=== PATIENT | male | born 1960 | race Caucasian/White ===

== ENCOUNTER 2016-10-23 21:54 | Emergency (ER) | payer SELFPAY ==
[2016-10-23] MEDS ORDERED: ASPIRIN 81 MG TABLET, CHEWABLE PO ONE (21:59)
[2016-10-23 22:15] VITALS: BP 118/73
--- NOTE | 2016-10-23 22:55 | RADIOLOGY REPORT (SQ) ---
EXAM DESCRIPTION: CHEST SINGLE VIEW COMPLETED DATE/TIME: 10/23/2016 10:28 pm REASON FOR STUDY: cp COMPARISON: 11/15/2015 EXAM PARAMETERS: NUMBER OF VIEWS: One view. TECHNIQUE: Single frontal radiographic view of the chest acquired. RADIATION DOSE: NA LIMITATIONS: None. FINDINGS: LUNGS AND PLEURA: Mild bibasilar confluent linear opacities, likely subsegmental atelectas is. No dense consolidation. No pneumothorax. No pleural effusion. MEDIASTINUM AND HILAR STRUCTURES: Stable. HEART AND VASCULAR STRUCTURES: Heart normal in size. Normal vasculature. BONES: No acute findings. HARDWARE: None in the chest. OTHER: No other significant finding. IMPRESSION: Mild bibasilar confluent linear opacities, likely subsegmental atelectasis. No dense co nsolidation or pleural effusion. TECHNICAL DOCUMENTATION: JOB ID: [id number]
[2016-10-23 23:10] LABS: ABSOLUTE EOSINOPHILS # (AUTO) 0.2 10^3/uL (0.0-0.6); ABSOLUTE LYMPHOCYTES (AUTO) 1.5 10^3/uL (0.5-4.7); ABSOLUTE MONOCYTES (AUTO) 0.6 10^3/uL (0.1-1.4); ABSOLUTE NEUT (AUTO) 3.2 10^3/uL (1.7-8.2); BASOPHILS % (AUTO) 0.4 % (0-2); EOSINOPHILS % (AUTO) 2.8 % (0-6); HEMATOCRIT 38.2 % (37.9-51.0); HGB HCT DIFFERENCE 0.8; LYMPHOCYTES % (AUTO) 28.3 % (13-45); MEAN CORPUSCULAR HEMOGLOBIN 31.1 pg (27.0-33.4); MEAN CORPUSCULAR HGB CONC 34.1 g/dL (32.0-36.0); MEAN CORPUSCULAR VOLUME 91 fl (80-97); MONOCYTES % (AUTO) 10.7 % (3-13); RED BLOOD COUNT 4.19 10^6/uL (4.35-5.55); SEGMENTED NEUTROPHILS % (AUTO) 57.8 % (42-78); WHITE BLOOD COUNT 5.5 10^3/uL (4.0-10.5)
[2016-10-23 23:20] LABS: ALANINE AMINOTRANSFERASE 27 U/L (21-72); ALBUMIN 4.1 g/dL (3.5-5.0); ALKALINE PHOSPHATASE 143 U/L (38-126); ANION GAP 10 (5-19); ASPARTATE AMINO TRANSFERASE 26 U/L (17-59); BILIRUBIN,DIRECT 0.3 mg/dL (0.0-0.4); BILIRUBIN,TOTAL 0.3 mg/dL (0.2-1.3); BLOOD UREA NITROGEN 6 mg/dL (7-20); CALCIUM 9.2 mg/dL (8.4-10.2); CARBON DIOXIDE 29 mmol/L (22-30); CHLORIDE 102 mmol/L (98-107); CREATINE KINASE 48 U/L (55-170); CREATININE RESULT 0.91 mg/dL (0.52-1.25); GLUCOSE 94 mg/dL (75-110); POTASSIUM 3.9 mmol/L (3.6-5.0); SODIUM 140.5 mmol/L (137-145); TOTAL PROTEIN 6.4 g/dL (6.3-8.2)
[2016-10-23 23:34] LABS: CREATINE KINASE MB 1.98 ng/mL (<4.55); TROPONIN I < 0.012 ng/mL
--- NOTE | 2016-10-24 08:08 | EKG REPORT ---
SEVERITY:- NORMAL ECG - SINUS RHYTHM : Confirmed on behalf of: Miguel Little 24-Oct-2016 08:06:38
== END 2016-10-23 23:15 | disposition left against medical advice (07) ==
LOC: ER 21:54
DX: Z53.9 Procedure and treatment not carried out, unspecified reason (principal); R07.9 Chest pain, unspecified
CPT/HCPCS: 36415; 71010; 80053; 82550; 82553; 84484; 85025; 93005; 93010

== ENCOUNTER 2017-01-08 10:46 | Observation (INO) | payer MEDICARE ==
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
[2017-01-08 11:39] LABS: ABSOLUTE EOSINOPHILS # (AUTO) 0.1 10^3/uL (0.0-0.6); ABSOLUTE LYMPHOCYTES (AUTO) 1.6 10^3/uL (0.5-4.7); ABSOLUTE MONOCYTES (AUTO) 0.8 10^3/uL (0.1-1.4); ABSOLUTE NEUT (AUTO) 4.4 10^3/uL (1.7-8.2); BASOPHILS % (AUTO) 0.6 % (0-2); EOSINOPHILS % (AUTO) 1.8 % (0-6); HEMATOCRIT 41.7 % (37.9-51.0); HEMOGLOBIN 13.9 g/dL (13.5-17.0); LYMPHOCYTES % (AUTO) 22.7 % (13-45); MEAN CORPUSCULAR HEMOGLOBIN 29.4 pg (27.0-33.4); MEAN CORPUSCULAR HGB CONC 33.5 g/dL (32.0-36.0); MEAN CORPUSCULAR VOLUME 88 fl (80-97); MONOCYTES % (AUTO) 11.2 % (3-13); RED BLOOD COUNT 4.75 10^6/uL (4.35-5.55); RED CELL DISTRIBUTION WIDTH 13.7 % (11.5-14.0); SEGMENTED NEUTROPHILS % (AUTO) 63.7 % (42-78); WHITE BLOOD COUNT 6.9 10^3/uL (4.0-10.5)
[2017-01-08 12:03] LABS: ALANINE AMINOTRANSFERASE 34 U/L (21-72); ALBUMIN 4.2 g/dL (3.5-5.0); ALKALINE PHOSPHATASE 132 U/L (38-126); ANION GAP 11 (5-19); ASPARTATE AMINO TRANSFERASE 24 U/L (17-59); BILIRUBIN,DIRECT 0.3 mg/dL (0.0-0.4); BILIRUBIN,TOTAL 0.3 mg/dL (0.2-1.3); BLOOD UREA NITROGEN 7 mg/dL (7-20); CALCIUM 9.5 mg/dL (8.4-10.2); CARBON DIOXIDE 31 mmol/L (22-30); CHLORIDE 103 mmol/L (98-107); CREATININE RESULT 0.99 mg/dL (0.52-1.25); GLUCOSE 95 mg/dL (75-110); POTASSIUM 3.7 mmol/L (3.6-5.0); SODIUM 145.1 mmol/L (137-145); TOTAL PROTEIN 6.7 g/dL (6.3-8.2)
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
[2017-01-08] MEDS ORDERED: NITROGLYCERIN 2% OINTMENT 1 GM PACKET TP ONE (13:08)
[2017-01-08] MEDS ORDERED: METOPROLOL TARTRATE 25 MG TABLET PO ONE (13:13)
--- NOTE | 2017-01-08 13:22 | EKG REPORT ---
SEVERITY:- BORDERLINE ECG - SINUS RHYTHM BORDERLINE R WAVE PROGRESSION, ANTERIOR LEADS TALL R WAVE IN V2, CONSIDER RVH OR PMI : Confirmed by: Duane Clarke MD 08-Jan-2017 13:21:23
[2017-01-08] MEDS ORDERED: MORPHINE SULFATE 10 MG/ML INJ IV PRN (13:59)
[2017-01-08] MEDS ORDERED: ONDANSETRON HCL INJ/PF 4 MG/2 ML SDV IV PRN (13:59)
[2017-01-08] MEDS ORDERED: DIAZEPAM 5 MG TABLET PO PRN (13:59)
[2017-01-08] MEDS ORDERED: NITROGLYCERIN 0.4 MG/TAB 25 TAB/BOTTLE SL PRN (13:59)
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
--- NOTE | 2017-01-08 15:18 | EKG REPORT ---
SEVERITY:- BORDERLINE ECG - SINUS RHYTHM NO EVIDENCE OF RV [place]. = r PRECORDIAL LEAD EKG. : Confirmed by: Duane Clarke MD 08-Jan-2017 15:18:01
[2017-01-08] MEDS: HYDROCODONE/ACETAMINOPHEN 10-325 MG TABLET PO PRN ×2 (15:52→21:08)
[2017-01-08] MEDS ORDERED: (PENDING PHARMACY ID) (Doxepin Hcl [Silenor] 3 MG) PO SCH (18:00)
[2017-01-08] MEDS: ALPRAZOLAM 0.5 MG TABLET PO SCH (21:07)
[2017-01-08] MEDS ORDERED: LANSOPRAZOLE 30 MG TAB.RAP.DR PO SCH (22:00)
[2017-01-08] MEDS ORDERED: TRAZODONE HCL 50 MG TABLET PO SCH (22:00)
[2017-01-08] MEDS ORDERED: ATORVASTATIN CALCIUM 80 MG TABLET PO SCH (22:00)
[2017-01-09] MEDS: ALPRAZOLAM 0.5 MG TABLET PO SCH ×2 (05:51→14:25)
[2017-01-09] MEDS: HYDROCODONE/ACETAMINOPHEN 10-325 MG TABLET PO PRN ×2 (05:51→12:02)
[2017-01-09] MEDS ORDERED: LANSOPRAZOLE 30 MG TAB.RAP.DR PO SCH (06:00)
[2017-01-09 07:07] LABS: CHOLESTEROL 188.39 mg/dL (0-200); Direct HDL 46 mg/dL (>40); TRIGLYCERIDES 126 mg/dL (<150)
[2017-01-09 07:17] LABS: DIRECT LDL 112 mg/dL (<100)
[2017-01-09] MEDS ORDERED: CLOPIDOGREL BISULFATE 75 MG TABLET PO SCH (10:00)
[2017-01-09] MEDS ORDERED: METOPROLOL SUCCINATE 25 MG TAB.SR.24H PO SCH (10:00)
[2017-01-09] MEDS ORDERED: PHENYTOIN SODIUM EXTENDED 100 MG CAPSULE PO SCH (10:00)
[2017-01-09] MEDS ORDERED: ASPIRIN 81 MG TABLET, ENT COATED PO SCH (10:00)
[2017-01-09] MEDS ORDERED: REGADENOSON INJ 0.4 MG/5 ML DISP.SYRIN IV ONE (13:26)
--- NOTE | 2017-01-09 16:21 | PDOC DISCHARGE SUMMARY ---
General - Admit/Disc Date/PCP Admission Date/Primary Care Provider: 01/08/17 14:02 QUOC HELM NP Discharge Date: 01/09/17 - Discharge Diagnosis (1) Accelerated hypertension Is this a current diagnosis for this admission?: Yes Summary: This patient has known coronary disease and hypertension. On admission during his acute chest pain episode he had elevated blood pressure. On his regular blood pressure medications his hypertension has resolved to normal. There are no medication changes made for discharge. (2) Chest pain Is this a current diagnosis for this admission?: Yes Summary: Patient has known coronary disease. Secondary to this and his chest pain syndrome along with elevated blood pressure he was admitted for ischemic evaluation. Patient underwent Cardiolite stress testing. Per report given to me by our cyber security the study was normal without evidence of fixed or reversible disease. Troponins were not consistent with an acute coronary syndrome pattern. Now with resolution of hypertension, and post stress test, patient's symptoms are completely resolved. He and I discussed the results of the Cardiolite stress test. I told him that despite normal results if he has recurrent chest pain he should be seen by medical provider given his history of NE and known coronary disease. (3) Myocardial infarction greater than 8 weeks ago Is this a current diagnosis for this admission?: Yes (4) Peripheral vascular disease Is this a current diagnosis for this admission?: Yes Summary: Stable during this hospitalization (5) Seizure disorder Is this a current diagnosis for this admission?: Yes Summary: Stable during this hospitalization - Additional Information Resuscitation Status: Full Code Discharge Diet: Cardiac Discharge Activity: Other - would recommend rest for a few days, then slowly resume normal activity. Return to medical care with any concering symptoms. Home Medications: Alprazolam [Xanax] 1 mg PO Q8 01/08/17 Clopidogrel Bisulfate [Plavix 75 mg Tablet] 75 mg PO DAILY 01/08/17 Doxepin HCl [Silenor] 3 mg PO BID 01/08/17 Esomeprazole Magnesium [Nexium] 40 mg PO DAILY 01/08/17 Ezetimibe [Zetia 10 mg Tablet] 10 mg PO DAILY 01/08/17 Hydrocodone Bit/Acetaminophen [Hydrocodon-Acetaminophn 10-325] 1 tab PO Q6HP PRN 01/08/17 Metoprolol Succinate [Toprol Xl 25 mg Tab.sr] 25 mg PO DAILY 01/08/17 Nortriptyline HCl [Pamelor] 75 mg PO QHS 01/08/17 Phenytoin Sodium Extended [Dilantin 100 mg Capsule.er] 200 mg PO DAILY 01/08/17 Rosuvastatin Calcium [Crestor] 40 mg PO QPM 01/08/17 Sildenafil Citrate [Viagra] 100 mg PO PRN PRN 01/08/17 Trazodone HCl [Desyrel 50 mg Tablet] 100 mg PO QHS 01/08/17 History of Present Illness History of Present Illness: NIKKY MCCULLOUGH is a 56 year old male Who was admitted to the hospitalist service with chest pain in the setting of acute coronary syndrome several years ago. His chest pain prior to admission with similar to the chest pain he had when he did have his NE. Due to chest pain syndrome and elevated blood pressure in the setting of known coronary disease he was admitted. Troponins were not consistent with acute coronary syndrome. He had negative Cardiolite. He is being discharged to home with no medication changes and with normal blood pressure. Chest pain-free. Physical Exam Vital Signs: Temp Pulse Resp BP Pulse Ox 97.8 F 76 18 127/68 H 96 01/09/17 11:09 01/09/17 14:00 01/09/17 11:09 01/09/17 11:09 01/09/17 11:09 Intake & Output 01/08/17 01/09/17 01/10/17 06:59 06:59 06:59 Intake Total 2070 Output Total 222 Balance 1848 Weight 79.5 kg General appearance: PRESENT: no acute distress, well-developed, well-nourished Head exam: PRESENT: atraumatic, normocephalic Ear exam: PRESENT: normal external ear exam Respiratory exam: PRESENT: clear to auscultation [place]. ABSENT: rales, rhonchi, wheezes Cardiovascular exam: PRESENT: RRR. ABSENT: diastolic murmur, rubs, systolic murmur GI/Abdominal exam: PRESENT: normal bowel sounds, soft. ABSENT: distended, guarding, mass, organolmegaly, rebound, tenderness Extremities exam: ABSENT: calf tenderness, clubbing, pedal edema Musculoskeletal exam: PRESENT: ambulatory Neurological exam: PRESENT: alert, awake, oriented to person, oriented to place , oriented to time, oriented to situation Psychiatric exam: PRESENT: appropriate affect Results Laboratory Results: 01/09/17 05:34 Triglycerides 126 Cholesterol 188.39 LDL Cholesterol Direct 112 H VLDL Cholesterol 25.0 HDL Cholesterol 46 01/08/17 01/08/17 01/09/17 14:18 20:00 02:24 Troponin I < 0.012 < 0.012 < 0.012 Qualifiers PATEINT BEING DISCHARGED WITH ANY OF THE FOLLOWING DIAGNOSIS?: No
[2017-01-09 16:26] VITALS: BP 139/85
--- NOTE | 2017-01-09 18:18 | DRAGON STRESS TEST REPORT ---
Intravenous Lexiscan Cardiolite stress test using single photon emmision computerized tomography. Date of procedure: 01/09/2017. Ordering Provider: Dr. Joey Rivers. Patient' s status: In Patient. Indication: Chest pain in a patient with coronary artery disease and stent placement.. Coronary risk factors: Age, hypertension, dyslipidemia, and family history of coronary artery disease Resting EKG: Sinus Rhythm. Within Normal Limits. Stress EKG: No changes of ischemia. Reason for termination: Protocol. Conclusions: Normal EKG and hemodynamic response to IV Lexiscan. Nuclear data: At rest the patient was given 12.94 millicuries of technetium 99m sestamibi injected intravenously. As per protocol rest non gated SPECT images were obtained. Subsequently the patient was given intravenous Lexiscan at a dose of 0.4 mg in 5 mL intravenously, followed by flush with normal saline. Subsequently the stress dose of 36.9 millicuries of technetium 99m sestamibi was injected intravenously. As per protocol stress gated images were obtained. Nuclear interpretation: Review of images showed that all segments of the myocardium had normal perfusion at rest, and normal perfusion post stress with IV Lexiscan. All segments of the myocardium had normal motion, contraction, and thickening by gated study. T. I D. ratio was read as abnormal at 1.28. But visually TID ratio was normal.. Computer read rest, and stress left ventricular ejection fraction were 63 %, and 65 %, respectively. Conclusion: 1. There is no scintigraphic evidence of Lexiscan induced myocardial ischemia. 2. There is no scintigraphic evidence of myocardial infarction/scar. Recommendations: Aggressive risk factor modification, and treating the underlying co- morbidities. MTDD
== END 2017-01-09 16:44 | disposition home or self-care (01) ==
LOC: ER 10:46 → EH 14:02 → 4W 15:33
PROVIDERS: ADMIT Internal Medicine; ATTEND Internal Medicine
DX: I10 Essential (primary) hypertension (principal); R07.9 Chest pain, unspecified; I25.10 Atherosclerotic heart disease of native coronary artery without angina pectoris; I25.2 Old myocardial infarction; I73.9 Peripheral vascular disease, unspecified; G40.909 Epilepsy, unspecified, not intractable, without status epilepticus; M79.622 Pain in left upper arm; I69.320 Aphasia following cerebral infarction; I69.323 Fluency disorder following cerebral infarction; I69.311 Memory deficit following cerebral infarction; Z79.899 Other long term (current) drug therapy; Z79.02 Long term (current) use of antithrombotics/antiplatelets; Z95.5 Presence of coronary angioplasty implant and graft; Z87.891 Personal history of nicotine dependence; Z82.49 Family history of ischemic heart disease and other diseases of the circulatory system; Z98.890 Other specified postprocedural states
CPT/HCPCS: 93005 ×2; 99284; 36415 ×2; 85025; 80053; 84484 ×2; 80061; 93017; 78452; 93010; G0378 ×3; A9500; A9270 ×14; J2785; J3490 ×2; Q9969

== ENCOUNTER 2017-09-25 05:21 | Day surgery (SDC) | payer MEDICARE ==
[2017-09-14 09:26] LABS: HEMATOCRIT 42.3 % (37.9-51.0); HEMOGLOBIN 14.2 g/dL (13.5-17.0); MEAN CORPUSCULAR HEMOGLOBIN 30.1 pg (27.0-33.4); MEAN CORPUSCULAR HGB CONC 33.5 g/dL (32.0-36.0); MEAN CORPUSCULAR VOLUME 90 fl (80-97); PLATELET COUNT 285 10^3/uL (150-450); RED BLOOD COUNT 4.72 10^6/uL (4.35-5.55); WHITE BLOOD COUNT 5.7 10^3/uL (4.0-10.5)
[2017-09-14 09:39] LABS: INTERNATIONAL RATION (INR) 0.91; PROTHROMBIN TIME 12.7 SEC (11.4-15.4)
[2017-09-14 09:40] LABS: PARTIAL THROMBOPLASTIN TIME 25.5 SEC (23.5-35.8)
[2017-09-14 09:50] LABS: ANION GAP 11 (5-19); BLOOD UREA NITROGEN 8 mg/dL (7-20); CALCIUM 9.3 mg/dL (8.4-10.2); CARBON DIOXIDE 28 mmol/L (22-30); CHLORIDE 105 mmol/L (98-107); GLUCOSE 87 mg/dL (75-110); POTASSIUM 4.4 mmol/L (3.6-5.0); SODIUM 143.5 mmol/L (137-145)
--- NOTE | 2017-09-14 18:22 | EKG REPORT ---
SEVERITY:- OTHERWISE NORMAL ECG - SINUS BRADYCARDIA : Confirmed by: Miguel Little 14-Sep-2017 18:21:43
[~2017-09-25 05:21] MED LIST: CEFAZOLIN 1 GM/D5W RTU 1 GM/50 ML RTUPB IV PRN; LACTATED RINGERS 1000 ML IV PRN; LIDOCAINE 0.5% INJ-PF (5 MG/ML) 50 ML SDV SUBCUT PRN
[2017-09-25] MEDS ORDERED: SODIUM BICARBONATE 8.4% INJ 50 MEQ/50 ML DISP.SYRIN ONE (05:43)
[2017-09-25] MEDS ORDERED: POVIDONE-IODINE 5% OPH PREP SOLN 30 ML ONE (05:43)
[2017-09-25] MEDS ORDERED: LIDOCAINE 1%/EPINEPHRINE INJ 20 ML VIAL ONE (05:43)
[2017-09-25] MEDS ORDERED: MIDAZOLAM 2 MG/2 ML INJ ONE (07:10)
[2017-09-25] MEDS ORDERED: ONDANSETRON HCL INJ/PF 4 MG/2 ML SDV ONE (07:10)
[2017-09-25] MEDS ORDERED: FENTANYL CITRATE INJ/PF 100 MCG/2 ML AMPUL ONE (07:10)
[2017-09-25] MEDS ORDERED: PROPOFOL INJ 200 MG/20 ML VIAL IV ONE (07:10)
[2017-09-25] MEDS ORDERED: MEPERIDINE HCL/PF INJ 25 MG/1 ML DISP.SYRIN IV PRN (08:01)
[2017-09-25] MEDS ORDERED: DIPHENHYDRAMINE HCL 50 MG/ML VIAL IV PRN (08:01)
[2017-09-25] MEDS ORDERED: PROMETHAZINE HCL INJ 25 MG/1 ML VIAL IV PRN (08:01)
[2017-09-25] MEDS ORDERED: FENTANYL CITRATE INJ/PF 100 MCG/2 ML AMPUL IV PRN ×3 (08:01)
--- NOTE | 2017-09-25 08:50 | Operative Report ---
Operative Report DATE OF SURGERY: 09/25/17 PREOPERATIVE DIAGNOSIS: Lesion of uncertain behavior of the left deltoid POSTOPERATIVE DIAGNOSIS: Lesion of uncertain behavior of the left deltoid possible squamous cell carcinoma OPERATION: Excision of lesion of left deltoid with frozen section margin control and reconstruction with a rotation flap SURGEON: ALEKSANDER GILES ANESTHESIA: LMAC TISSUE REMOVED OR ALTERED: Lesion of uncertain behavior removed COMPLICATIONS: None ESTIMATED BLOOD LOSS: Minimal PROCEDURE: Patient seen and was marked prior to being brought into the operating room. Patient was brought into the operating room and placed on the operating room table in a [supine] position. Patient was then prepped with a Betadine scrub and Betadine solution and draped in a sterile and aseptic manner. The area was then marked. 12 O'clock was marked towards the apex of the deltoid 3 O'clock was marked towards the lateral deltoid 6:00 was marked towards the elbow 9:00 was marked towards the inner arm The area was then anesthetized with 1% lidocaine with epinephrine and bicarbonate for its anesthetic and hemostatic effects. The area was then excised and marked at 12:00. The specimen was sent for frozen section. The results came back that the deep and lateral margins were free. We had considered a primary closure but this would go against the natural relaxed skin tension lines. A primary closure would be too tight and would have increased chance of dehiscence. This will leave more of a scar so we decided to use a rotation flap reconstruction which would camouflage the scar better and take tension off of the closure so that would be less chances of complications. Using a rotation flap this would allow us to put the reconstructive scar closer to the relaxed tension lines. The reconstruction will also camouflage better. The reconstruction would also minimize jeopardy from early range of motion of the shoulder and deltoid. Then we went ahead and outlined the flap and anesthetized it. We then incised the flap and developed a flap maintaining the subdermal plexus. Then we undermined 360 to allow for plate like scarring and minimize trap door deformity. Throughout the case hemostasis was achieved with the bipolar. We then sutured the flap into its new position using 3-0 Vicryl for the subcutaneous and deep dermis. Skin was closed with a [running subcuticular suture] stitch using 3-0 PDS with knots being tied on the outside. And 3-0 PDS suture was used for support and placed in the central area of the incision. We then applied tincture benzoin and Steri-Strips followed by a light pressure dressing. Patient was then reversed from anesthesia and taken to the [facility] for recovery. The patient tolerated well. There were no complications. Lesion size was approximately 2.3 x 1.7 cm please see pathology for actual size. Portions of this note may be dictated using [employer] voice recognition software. Occasional variations and spelling and vocabulary could be possible and are unintentional. Additionally, there is a chance that some errors may not be caught or corrected. Please notify the author of any discrepancies noted or if any statements are unclear. Subjective: No complaints Objective: Vital signs stable afebrile No bleeding Dressing intact Assessment and plan: Doing well. Elevate the operative site. Resume medications. Take antibiotics for 1 day Follow-up Full instructions were given to the patient and family and they understand Portions of this note may be dictated using [employer] voice recognition software. Occasional variations and spelling and vocabulary could be possible and are unintentional. Additionally, there is a chance that some errors may not be caught or corrected. Please notify the offer of any discrepancies noted or if any statements are unclear.
--- NOTE | 2017-09-25 08:52 | Discharge Summary ---
Discharge Summary (SDC) - Discharge Final Diagnosis: Lesion of uncertain behavior of the left deltoid Date of Surgery: 09/25/17 Condition: Good Treatment or Instructions: Leave the top dressing on for 2 days, then removed. Leave the steri-strip tapes on for 5 days, then removal. Then cleaning wound with peroxide and apply Neosporin/bacitracin 3 times per day. Antibiotics for 1 day, then discontinue. Elevate operative area to decrease swelling. Do not strain, or lift heavy objects. Call for excessive bleeding, increased temperature of 101, uncontrolled pain, or excessive nausea or vomiting. You may reach Dr. Dhaliwal through his office at [phone]. In the event of an emergency after hours, then contact Dr. Dhaliwal through [facility]. Return to the office for a postop check on . The time will be scheduled by the nursing staff of [facility] prior to discharge. Please give the patient a copy of their labs and EKG so they can bring this to their PMD. Thank you Portions of this note may be dictated using [employer] voice recognition software. Occasional variations and spelling and vocabulary could be possible and are unintentional. Additionally, there is a chance that some errors may not be caught or corrected. Please notify the offer of any discrepancies noted or if any statements are unclear. Referrals: [facility] HELM, HOLLAND [Primary Care Provider] - Discharge Diet: As Tolerated Report the Following to Your Physician Immediately: Unusual Bleeding - Keep arm elevated. No bending or straining of the arm . keep torso elevated
[2017-09-25 09:59] VITALS: BP 147/85
[2017-09-25] MEDS ORDERED: PHENYLEPHRINE HCL INJ/PF 10 MG/1 ML SDV ONE (16:08)
[2017-09-25] MEDS ORDERED: GLYCOPYRROLATE 1 MG/5 ML SYRINGE ONE (16:08)
== END 2017-09-25 10:05 | disposition home or self-care (01) ==
LOC: OROUT 05:21
PROVIDERS: ATTEND Plastic Surgery
DX: C44.699 Other specified malignant neoplasm of skin of left upper limb, including shoulder (principal); J44.9 Chronic obstructive pulmonary disease, unspecified; I10 Essential (primary) hypertension; E78.5 Hyperlipidemia, unspecified; I25.10 Atherosclerotic heart disease of native coronary artery without angina pectoris; K21.9 Gastro-esophageal reflux disease without esophagitis; G40.909 Epilepsy, unspecified, not intractable, without status epilepticus; I25.2 Old myocardial infarction; I69.398 Other sequelae of cerebral infarction; H53.9 Unspecified visual disturbance; Z79.82 Long term (current) use of aspirin; Z79.899 Other long term (current) drug therapy; Z79.02 Long term (current) use of antithrombotics/antiplatelets
CPT/HCPCS: 93010; 93005; 36415; 85027; 85610; 85730; 80048; 88305 ×2; 88331 ×2; 14020; J2250; J0690; J3010; J3490 ×3; J2370; J2405; J2704; 400

== ENCOUNTER → 2017-10-17 | Outpatient (CLI) | payer MEDICARE ==
--- NOTE | 2017-10-17 12:15 | RADIOLOGY REPORT (SQ) ---
EXAM DESCRIPTION: SHOULDER BILAT 2 OR MORE VIEWS COMPLETED DATE/TIME: 10/17/2017 9:39 am REASON FOR STUDY: BILATERAL SHOULDER PAIN COMPARISON: None. NUMBER OF VIEWS: Three views right shoulder. Three views left shoulder. LIMITATIONS: None. FINDINGS: Right: No bone, joint or soft tissue abnormality. Left: No bone, joint or soft tissue abnormality. OTHER: No other significant finding. IMPRESSION: Radiographically normal bilateral shoulders. TECHNICAL DOCUMENTATION: JOB ID: [id number] Reading location - IP/workstation name: [email or web address]
== END ==
LOC: OD 09:25
PROVIDERS: ATTEND Physician Assistant
DX: M25.511 Pain in right shoulder (principal); M25.512 Pain in left shoulder